=== PATIENT | male | born 1975 | race Caucasian/White ===

== ENCOUNTER 2018-12-04 17:53 | Emergency (ER) | payer MEDICARE, SELFPAY ==
[2018-12-04 17:54] VITALS: BP 142/78; PULSE 88; RESP 17; TEMP 36.1; O2SAT 100; BMI 24.4
--- NOTE | 2018-12-04 18:06 | ED.DCSUM_ITS ---
- ER Visit Summary Date of Service: 12/04/18 Chief Complaint: Right eye History of Present Illness: The patient is a 42 M presents to the emergency department with a red eye. Patient states he woke this morning, and had some erythema and drainage of his left eye. He states is gotten worse throughout the day. He denies any trauma. He has not been doing any welding, grinding, or blood work. He does not think he got anything in it. He denies visual change. He denies any recent sick contacts. He does not wear glasses or contacts. Physical Examination: Patient does have some diffuse conjunctival injection of the left eye. There is no hypopyon. There is no hyphema. There is scant exudate at the corner. Pupils equal round reactive. Lid was inverted and there was no foreign body. Test Results: [] Emergency Department Course and Treatment: Patient does appear to have a conjunctivitis. He will be placed on rhythm ice and ointment. He was counseled on concerning symptoms and reasons to return. He will be given outpatient ophthalmology follow-up as needed. He will be discharged home. Treatment Plan: [] Disposition: Discharge Impression: 1. Left eye conjunctivitis This note was generated with [employer] dictation software. It may contain incorrect words, spelling, and punctuation that were not noted in review of the chart prior to signing ED Disposition - Plan for ED Patient: Instructions: ED Conjunctivitis Bacterial Referrals: Calin Grier MD [STAFF PHYSICIAN] - 2 Days for wound check
== END 2018-12-04 18:25 | disposition home or self-care (01) ==
LOC: ED 18:24
PROVIDERS: Emergency Provider Emergency Medicine; Family Provider Internal Medicine; PCP Internal Medicine
DX: H10.32 Unspecified acute conjunctivitis, left eye (principal)
CPT/HCPCS: 99282

== ENCOUNTER 2021-05-01 20:04 | Emergency (ER) | payer MEDICARE, MEDICAID, SELFPAY ==
[2021-05-01 20:05] VITALS: BP 127/96; PULSE 77; RESP 18; TEMP 36.3; O2SAT 100; BMI 22.8
--- NOTE | 2021-05-01 22:44 | EX.ED.DYSGE1 ---
HPI History of Present Illness Chief Complaint: Other, Pain/Inj Detail of Chief Complaint: Pain and swelling to left great toe Informant: patient Narrative Narrative: Patient presents to the ER complaining of pain and swelling to his left great toe. Patient states that he believes he has an ingrown toenail. Patient has had these resected in the past. He denies any fevers. Denies any trauma to the toe. Prior similar symptoms: Yes PFSH PFSH Medical History (Updated 05/01/21 @ 23:[address] Rohan Stafford, DO) Hepatitis History of drug abuse Medical History no medical history Home Medications cephalexin 500 mg PO Q6 #40 capsule 05/01/21 [Rx Last Taken Unknown] Allergy/AdvReac Type Severity Reaction Status Date / Time No Known Allergies Allergy Verified 05/01/21 20:07 Surgical History (Updated 09/28/19 @ 13:52 by Ca Abad) History of mandibular surgery Social History (Updated 09/28/19 @ 13:53 by Ca Abad) Smoking Status: Never smoker alcohol intake: never substance use type: methamphetamine what type of physical activity do you participate in: none ROS ROS ED Constitutional Constitutional ED: Reports systems reviewed and no addt'l complaints, except as documented; Denies body ache(s), change in weight or chills Eyes Eyes: Denies acute decrease in peripheral vision, change in vision, double vision or loss of vision ENT ENT ED: Reports none; Denies ear pain, lip swelling, loss taste/smell, neck pain, otalgia or sore throat Cardiovascular Cardiovascular: Reports none; Denies abdominal pain, chest pain with activity, leg edema, lightheadedness, palpitations, rapid heart rate or syncope Respiratory/Chest Respiratory/Chest: Reports none; Denies change in mental status, dry cough, dyspnea, hemoptysis, shortness of breath at rest or shortness of breath with exertion Gastrointestinal Gastrointestinal: Reports none; Denies abdominal pain, change in stool character, diarrhea, hematemesis, hematochezia, melena, rectal bleeding or vomiting Genitourinary Genitourinary ED: Reports none; Denies abdominal discomfort, anuria, dysuria, genital pain or polyuria Musculoskeletal Musculoskeletal: Reports none and other Details: Left great toe pain ; Denies arthralgias, back pain, difficulty walking, extremity pain, muscle weakness or myalgias Integumentary Reports none; Denies abscess or rash Neurologic Neurologic: Reports none; Denies abnormal gait, confusion, focal weakness, frequent falls, headache(s), loss of vision, numbness, paresthesias, radicular pain, vertigo or weakness Psychiatric Psychiatric: Reports systems reviewed and no addt'l complaints, except as documented and none; Denies behavioral changes, confusion, difficulty concentrating, hallucinations, suicidal ideation, tactile hallucinations or visual hallucinations Endocrine Endocrinology: Denies none, cold intolerance, excessive sweating, fatigue or heat intolerance Hematologic/Lymphatic Hematologic/Lymphatic: Reports none; Denies anemia, easy bleeding or easy bruising Allergic/Immunologic Allergic/Immunologic ED: Denies as per HPI, none, lip swelling, mouth swelling, throat swelling, tongue swelling or hives EXAM Physical Exam Const Vital Signs: 05/01/21 20:05 Temperature 97.3 F L Temperature Source Temporal Pulse Rate 77 Respiratory Rate 18 Blood Pressure 127/96 H Blood Pressure Mean 106 Pulse Ox 100 Oxygen Delivery Method Room Air Positive well nourished and well developed General Appearance ED: well developed and NAD HEENT Reports TM's clear and moist mucous membranes normocephalic and atraumatic; Negative for trauma or tenderness Tympanic Membrane ED: Yes TM's clear Eyes PERRL and EOMs intact bilaterally General Eye ED: Negative for pale conjunctiva or scleral icterus Neck no lymphadenopathy, supple and no JVD General: Negative for tenderness Chest Wall inspection of chest normal and palpation of chest normal Chest: Negative for tenderness Resp normal respiratory effort and clear to auscultation bilaterally Effort and Inspection: Negative for respiratory distress or pain with movement Auscultation: Negative for rhonchi, wheezes or diminished lung sounds Cardio regular rate, regular rhythm, S1 normal heart sound, S2 normal heart sound and no murmurs Peripheral Pulses: pulses 2+ throughout GI normal to inspection, nondistended, normoactive bowel sounds, soft to palpation, non-tender, non-distended and no masses Back/Spine no CVA tenderness and no thoracic nor lumbar tenderness Extremity Extremity Narrative: Evaluation of the left great toe does reveal that he has an ingrown toenail involving the medial portion of the nail with some soft tissue swelling and erythema noted to the distal phalanx of the toe. No purulent drainage noted. General Extremety ED: Negative for edema General Extremity: Negative for edema Neuro oriented x3, CN's II-XII intact bilaterally, no sensory deficits noted and gait normal Sensorium / Orientation: awake, alert, oriented to person, oriented to place and oriented to time Motor Exam: strength 5/5 throughout and strength abnormal Psych mental status grossly normal Skin no rashes or lesions noted and no wounds Procedures Other Procedures Procedure(s): Left great toenail resection-area sterilely draped and prepped. Toe anesthetized with 1% lidocaine total of 8 cc via digital block. Using curved hemostats I was able to lift the nail off the nail bed and remove it. I excised the medial portion of the nail and replaced the nail under the nail fold after the nailbed was irrigated with copious saline. Clean dressing applied. Patient tolerated procedure well. Discharge Plan Triage Chief Complaint: Other, Pain/Inj ED Provider: Rohan Stafford Dx/Rx/DC Orders Clinical Impression: Ingrowing toenail of left foot Instructions: ED Ingrown Toenail, Excised Prescriptions: New cephalexin [cephalexin] 500 MG capsule 500 mg PO Q6 Qty: 40 RF: 0 Primary Care Provider: Arnaud Rios Referrals: Calin Long DPM [STAFF PHYSICIAN] - 5-7 Days Arnaud Rios MD [Primary Care Provider] - Disposition Disposition: Home, Self Care
[2021-05-01] MEDS: Cephalexin 250 MG Capsule 500 MG PO (23:11)
[2021-05-01 23:20] VITALS: RESP 16
== END 2021-05-01 23:21 | disposition home or self-care (01) ==
LOC: ED 23:07
PROVIDERS: Emergency Provider Emergency Medicine; PCP Internal Medicine
DX: L60.0 Ingrowing nail (principal)
CPT/HCPCS: 11765; 99284